=== PATIENT | female | born 1995 | race Caucasian/White ===

== ENCOUNTER → 2016-06-10 | Outpatient (CLI) | payer OTHER ==
[~2016-06-10] MED LIST: CEPH-331 PO; FAMC250T2 PO; LTRS15C EXT
[2016-06-10 17:18] VITALS: BP 115/79
--- NOTE | 2016-06-10 17:18 | Urgent Care T Sheet Gen (E) ---
Intake General Temperature (Fahrenheit): 99.8 Pulse: 82 Blood Pressure Systolic: 115 Blood Pressure Diastolic: 79 Respirations: 18 SPO2: 98 Description of Symptoms Patient presents with ST, GAO and low grade fever x 3 days. States she had her tonsils removed in the 3rd grade and has only had strep once since then. States her symptoms feel like it. Mild cough and runny nose but ST is the biggest complaint. Used some Chloraseptic spray without much relief. History of Present Illness Allergies: Coded Allergies: Penicillins (Verified Allergy, Mild, RASH, 08/09/11) Home Meds Active Scripts Famciclovir 250 Mg [id number] Mg PO TID #21 TAB Prov:JOSE URIBE 09/04/15 Betamethasone/Clotrimazole (Lotrisone Cream 15 gm)15 Gm Cr15 Gm EXT BID #1 TUBE apply thin film to area BID x 10 days Prov:KARRIE HARRIS APRN () 08/21/15 Cephalexin (Keflex)500 Mg [id number] Mg PO BID Infection #14 CAP Ref 0 Prov:KARRIE HARRIS APRN () 08/21/15 Respiratory Constitutional Symptoms: Fever Malaise EENTM: Nose Congestion Throat pain Respiratory: Cough Cardiovascular: No symptoms reported Gastrointestinal/Abdominal: No symptoms reported Neurological: Headache All Other Systems Reviewed Remaining Systems: All other systems reviewed with negative findings Past [id number] Hx Surgeries/Hospitalizations Hospitalization/Surgery Hx: TONSILS, Respiratory Respiratory History: None Cardiovascular Cardiovascular History: None Neuro/Muscular Neuro/Muscular History: None Genitouinary Genitourinary History: None Gastrointestinal GI/Endocrine History: None Integumentary Integumentary History: None Cancer History of Cancer?: No Physical Exam Physical Exam General Appearance: WD/WN No apparent distress Eyes, Ears, Nose, Throat Ex: TMs normal Pharyngeal erythema Other (nose is clear) Neck Exam: Supple Lymphadenopathy (anterior cervical) Respiratory Exam: Lungs clear Normal breath sounds Cardiovascular Exam: Regular rate, rhythm Progress/Orders Lab Results Labs Results: Rapid Strep (negative) Departure Urgent Care Impression Impression: Primary Impression: Viral pharyngitis Departure Disposition: HOME OR SELF-CARE Condition: Stable Referrals: CHRIS RHODES MD (PCP) Additional Instructions: Rapid strep is negative. I have sent it out for culture and will call once results are known. Symptomatic treatment. Rest. Fluids Chloraseptic spray as needed. Ibuprofen 600mg QID prn Return if no better Patient understands DC instructions. All questions were answered. End of report . JOSE URIBE Jun 10, 2016 17:18
--- NOTE | 2016-06-15 15:27 | Urgent Care Follow Up Note (E) ---
Urgent Care Follow Up Note Throat culture was negative JOSE URIBE Jun 15, 2016 15:27
== END ==
LOC: MHUC 16:57
PROVIDERS: ATTEND Physician Assistant
DX: J02.8 Acute pharyngitis due to other specified organisms (principal)
CPT/HCPCS: 87880; 99213